=== PATIENT | male | born 1985 | race Caucasian/White ===

== ENCOUNTER 2017-01-22 13:22 | Day surgery (SDC) | payer OTHER ==
[~2017-01-22] VITALS: Ht 190.5 cm; Wt 131.0 kg
[~2017-01-22 13:22] MED LIST: BUPIVACAINE/PF-EPI 0.5% 1:200K ONE; IBUP800T PO
[2017-01-22] MEDS ORDERED: FENTANYL PF 250 MCG/5ML ONE ×2 (13:33→16:01)
[2017-01-22] MEDS ORDERED: MIDAZOLAM 1 MG/ML, 2ML ONE (13:33)
[2017-01-22 13:51] VITALS: BP 144/92
[2017-01-22] MEDS ORDERED: LACTATED RINGERS 1,000 ML IV SCH (14:14)
[2017-01-22] MEDS ORDERED: LIDOCAINE 1%, 2ML SQ PRN (14:30)
[2017-01-22] MEDS ORDERED: ROPIvacaine/PF 0.5%, 30 ML ONE (14:42)
[2017-01-22] MEDS ORDERED: NEOSTIGMINE 1 MG/ML, 10ML ONE (15:08)
[2017-01-22] MEDS ORDERED: PROPOFOL 10 MG/ML, 20ML ONE (15:08)
[2017-01-22] MEDS ORDERED: CEFAZOLIN 1,000 MG ONE (15:08)
[2017-01-22] MEDS ORDERED: ONDANSETRON 2MG/ML, 2ML ONE (15:08)
[2017-01-22] MEDS ORDERED: SUCCINYLCHOLINE 20 MG/ML, 10ML ONE (15:08)
[2017-01-22] MEDS ORDERED: ROCURONIUM 10 MG/ML ONE (15:08)
[2017-01-22] MEDS ORDERED: DEXAMETHASONE 4 MG/ML, 1ML ONE (15:08)
[2017-01-22] MEDS ORDERED: GLYCOPYRROLATE 0.2MG/1ML ONE (15:08)
[2017-01-22] MEDS ORDERED: LIDOCAINE 0.5%-EPI 1:200K, 50ML ONE (15:18)
[2017-01-22] MEDS ORDERED: ACETAMINOPHEN 325 MG TABLET PO PRN (16:00)
[2017-01-22] MEDS ORDERED: METOCLOPRAMIDE 5 MG/ML, 2ML IV PRN (16:00)
[2017-01-22] MEDS ORDERED: hydrALAzine 20 MG/ML, 1ML IV PRN (16:00)
[2017-01-22] MEDS ORDERED: HYDROmorphone 1 MG/ML, 1ML IV PRN (16:00)
[2017-01-22] MEDS ORDERED: LABETALOL 5MG/ML, 20ML IV PRN (16:00)
[2017-01-22] MEDS ORDERED: ONDANSETRON 2MG/ML, 2ML IVPush PRN (16:00)
[2017-01-22] MEDS ORDERED: OXYcodone 5 MG/5 ML ORAL.SOL UDC PO PRN (16:00)
[2017-01-22] MEDS ORDERED: FENTANYL PF 100 MCG/2ML ONE (17:07)
[2017-01-22] MEDS ORDERED: MEPERIDINE/PF 25MG/0.5ML ONE (17:08)
[2017-01-22] MEDS: FENTANYL PF 100 MCG/2ML IV PRN ×2 (17:34→17:42)
[2017-01-22] MEDS ORDERED: ACETAMINOPHEN 650 MG/20.3 ML UDC ONE (17:37)
[2017-01-22] MEDS ORDERED: ACETAMINOPHEN 325 MG TABLET ONE (17:37)
[2017-01-22] MEDS ORDERED: OXYcodone 5 MG/5 ML ORAL.SOL UDC ONE (17:37)
[2017-01-22] MEDS ORDERED: HYDROmorphone 2 MG/ML, 1ML ONE (17:55)
[2017-01-22] MEDS ORDERED: MEPERIDINE/PF 25MG/0.5ML IVPush PRN (18:00)
== END 2017-01-22 19:10 | disposition home or self-care (01) ==
LOC: OUT 13:22
PROVIDERS: ATTEND Orthopaedic Surgery
DX: S83.512A Sprain of anterior cruciate ligament of left knee, initial encounter (principal); S83.232A Complex tear of medial meniscus, current injury, left knee, initial encounter; M65.862 Other synovitis and tenosynovitis, left lower leg; X50.1XXA Overexertion from prolonged static or awkward postures, initial encounter; Y93.67 Activity, basketball; Y92.9 Unspecified place or not applicable; Y99.9 Unspecified external cause status
CPT/HCPCS: 29881; 29888; 73560; 76000; C1713; C1762; J0330; J0690; J1100; J1170; J2250; J2405; J2704; J2710; J2795; J3010; J3490; J7120